=== PATIENT | female | born 1945 | race African-American/Black ===

== ENCOUNTER 2020-06-03 11:45 | Emergency (ER) | payer MEDICARE ==
[~2020-06-03] VITALS: Ht 165.1 cm; Wt 76.2 kg
[~2020-06-03 11:45] MED LIST: ASPI-889 PO; CEPH500C PO; FAMO-63 PO
--- NOTE | 2020-06-03 12:25 | EKG ---
[address] [address] Test Date: 2020-06-03 Test Time: 11:59:58 Pat Name: NAVARRO REYNOLDS Department: Room: Gender: F Host Hostess: ANTIONETTE : 1945 Requested By: ASHANTI BOYD Order Number: [id number] Reading MD: Measurements Intervals [place] Rate: 88 P: 46 [place]: 174 QRS: -2 QRSD: 134 T: 48 QT: 398 QTc: 485 Interpretive Statements SINUS RHYTHM LEFTWARD AXIS RIGHT BUNDLE BRANCH BLOCK ABNORMAL ECG RI6.02 No previous ECG available for comparison
[2020-06-03] MEDS ORDERED: IV NORMAL SALINE 1,000ML 1,000 ML IV ONE (12:30)
--- NOTE | 2020-06-03 12:35 | RAD ---
CHEST AP ONLY 06/03/2020 11:55 AM INDICATION: Right flank pain COMPARISON: 05/14/2016 TECHNIQUE: Portable frontal view of the chest is provided. FINDINGS: The cardiomediastinal silhouette is within normal limits. Left basilar subsegmental atelectasis versus scarring noted. There is chronic interstitial prominence biapical pleural-parenchymal scarring. Pulmonary emphysematous changes are suspected. There are no significant pleural effusions. There is no pulmonary vascular congestion. No pneumothorax. No suspicious osseous abnormality. IMPRESSION: COPD changes without acute cardiopulmonary process. Electronically signed by: Gina Nascimento MD (06/03/2020 12:33 PM) [facility]
[2020-06-03 13:00] LABS: BASO % 0 % (0-3); EOS % 0 % (0-3); HEMATOCRIT 29.1 % (36.0-47.0); HEMOGLOBIN 9.4 g/dL (12.0-15.5); LYMPH # 0.6 x10^3/uL (1.0-4.8); LYMPH % 9 % (24-48); MEAN CORPUSCULAR HEMOGLOBIN 30 pg (25-35); MEAN CORPUSCULAR HGB CONC 32 g/dL (31-37); MEAN CORPUSCULAR VOLUME 94 fL (79-100); MONO # 0.6 x10^3/uL (0.0-1.1); MONO % 9 % (0-9); NEUT # 5.7 x10^3uL (1.8-7.7); NEUT % 82 % (31-73); PLATELET COUNT 192 x10^3/uL (140-400); RED BLOOD COUNT 3.11 x10^6/uL (3.50-5.40); RED CELL DISTRIBUTION WIDTH 13.6 % (11.5-14.5)
--- NOTE | 2020-06-03 13:07 | PHYS DOC ---
Past History Past Medical History: Hypertension, Sciatica, Vascular Disease, Other Past Surgical History: No Surgical History Alcohol Use: None Drug Use: None General Adult EDM: Chief Complaint: GI PROBLEM HPI: HPI: History obtained from patient and daughter. Patient is a 75-year-old female with no reported medical history presents with chief complaint of abdominal pain with vomiting. Patient was seen at a primary care physician's office just prior to arrival noted to have a heart rate in the 40s and an SPO2 of 78%. Upon arrival patient has normal oxygenation on room air for rest. She states she has had multiple episodes of nonbloody nonbilious emesis over the past several days and is felt generally ill. Denies any fevers. Denies any previous abdominal surgical history. States she did have a bowel movement this morning. Reports passing flatus. Denies any chest pain or shortness of breath. Denies syncope. States she has not tried medication to help. Daughter does not report any additional concerning symptoms. Patient denies any urinary symptoms including dysuria or hematuria. She notes a decrease in urinary output. No other complaints. Review of Systems: Review of Systems: Constitutional: Denies fever or chills Eyes: Denies change in visual acuity HENT: Denies nasal congestion or sore throat Respiratory: Denies cough or shortness of breath Cardiovascular: Denies chest pain or edema GI: Positive for vomiting and abdominal pain : Denies dysuria Musculoskeletal: Denies back pain or joint pain Integument: Denies rash Neurologic: Denies headache, focal weakness or sensory changes Endocrine: Denies polyuria or polydipsia Lymphatic: Denies swollen glands Psychiatric: Denies depression or anxiety Heart Score: Risk Factors: Risk Factors: DM, Current or recent (<one month) smoker, HTN, HLP, family history of CAD, obesity. Risk Scores: Score 0 - 3: 2.5% MACE over next 6 weeks - Discharge Home Score 4 - 6: 20.3% MACE over next 6 weeks - Admit for Clinical Observation Score 7 - 10: 72.7% MACE over next 6 weeks - Early Invasive Strategies Current Medications: Current Meds: Current Medications Medications (Trade) Dose Ordered Sig/Jennifer Start Time Stop Time Status Last Admin Dose Admin Sodium Chloride 1,000 ml @ 1,000 mls/hr 1X ONCE 06/03/20 12:30 06/03/20 13:29 Allergies: Allergies: Allergies Coded Allergies Type Severity Reaction Last Updated Verified No Known Drug Allergies 12/23/15 No Physical Exam: PE: Constitutional: Well developed, well nourished, no acute distress, non-toxic appearance. [] HENT: Normocephalic, atraumatic, bilateral external ears normal, oropharynx moist, no oral exudates, nose normal. [] Eyes: PERRLA, EOMI, conjunctiva normal, no discharge. [] Neck: Normal range of motion, no tenderness, supple, no stridor. [] Cardiovascular:Heart rate regular rhythm, no murmur [] Lungs & Thorax: Bilateral breath sounds clear to auscultation [] Abdomen: Bowel sounds normal, soft, no tenderness, no masses, no pulsatile masses. [] Skin: Warm, dry, no erythema, no rash. [] Back: No tenderness, no CVA tenderness. [] Extremities: No tenderness, no cyanosis, no clubbing, ROM intact, no edema. [] Neurologic: Alert and oriented X 3, normal motor function, normal sensory function, no focal deficits noted. [] Psychologic: Affect normal, judgement normal, mood normal. [] Current Patient Data: Labs: Laboratory Tests Test 06/03/20 12:25 White Blood Count 7.0 x10^3/uL Red Blood Count 3.11 x10^6/uL Hemoglobin 9.4 g/dL Hematocrit 29.1 % Mean Corpuscular Volume 94 fL Mean Corpuscular Hemoglobin 30 pg Mean Corpuscular Hemoglobin Concent 32 g/dL Red Cell Distribution Width 13.6 % Platelet Count 192 x10^3/uL Neutrophils (%) (Auto) 82 % Lymphocytes (%) (Auto) 9 % Monocytes (%) (Auto) 9 % Eosinophils (%) (Auto) 0 % Basophils (%) (Auto) 0 % Neutrophils # (Auto) 5.7 x10^3uL Lymphocytes # (Auto) 0.6 x10^3/uL Monocytes # (Auto) 0.6 x10^3/uL Eosinophils # (Auto) 0.0 x10^3/uL Basophils # (Auto) 0.0 x10^3/uL Sodium Level 134 mmol/L Potassium Level 3.9 mmol/L Chloride Level 98 mmol/L Carbon Dioxide Level 14 mmol/L Anion Gap 22 Blood Urea Nitrogen 89 mg/dL Creatinine 13.6 mg/dL Estimated GFR (Cockcroft-Gault) 3.2 BUN/Creatinine Ratio 7 Glucose Level 89 mg/dL Calcium Level 10.8 mg/dL Magnesium Level 2.2 mg/dL Total Bilirubin 0.3 mg/dL Aspartate Amino Transf (AST/SGOT) 9 U/L Alanine Aminotransferase (ALT/SGPT) 17 U/L Alkaline Phosphatase 74 U/L Troponin I Quantitative < 0.017 ng/mL LY-Cfw-Y-Type Natriuretic Peptide 68640 pg/mL Total Protein 8.5 g/dL Albumin 3.7 g/dL Albumin/Globulin Ratio 0.8 Lipase 184 U/L Current Medications Medications (Trade) Dose Ordered Sig/Jennifer Route PRN Reason Start Time Stop Time Status Last Admin Dose Admin Sodium Chloride 1,000 ml @ 1,000 mls/hr 1X ONCE IV 06/03/20 12:30 06/03/20 13:29 DC 06/03/20 12:30 Vital Signs: Vital Signs Date Time Temp Pulse Resp B/P (MAP) Pulse Ox O2 Delivery O2 Flow Rate FiO2 06/03/20 14:25 98 172/100 (124) 92 EKG: EKG: [] EKG consistent with normal sinus rhythm. Ventricular rate of 88 bpm. Left axis noted. ST depression noted in the anterior lateral precordial leads. No acute ST segment elevation appreciated. Radiology/Procedures: Radiology/Procedures: [address] [address] IMAGING REPORT Signed PATIENT: NAVARRO REYNOLDS JACCOUNT: [id number] : 1945 LOCATION: ER AGE: 75 SEX: F EXAM STATUS: REG ER ORD. PHYSICIAN: ASHANTI BOYD DO REASON: abdominal pain with vomiting PROCEDURE: CT CHEST ABDOMEN PELVIS WO EXAM: CT Chest, Abdomen, and Pelvis without IV contrast INDICATION: Reason: abdominal pain with vomiting / Spl. Instructions: / History: TECHNIQUE: Multi-detector row CT images were acquired from the thoracic inlet through the ischial tuberosities without the use of IV contrast. Sagittal and coronal images were acquired from the transaxial data. All CT scans performed at this facility utilize dose optimization techniques as appropriate to the exam, including the following: Automated exposure control and adjustment of the mA and/or KV according to patient size (this includes techniques or standardized protocols for targeted exams where dose is indication/reason for exam). ORAL CONTRAST: Not administered COMPARISON: None FINDINGS: The absence of IV contrast limits evaluation of soft tissue pathology. CHEST: CARDIOVASCULAR: Normal caliber thoracic aorta without evidence of intramural hematoma. Normal caliber pulmonary arteries are normal size heart. Trace pericardial effusion. Coronary calcifications and aortic valvular calcifications are noted. MEDIASTINUM & CRISTINA: Extensive calcified mediastinal and bilateral hilar lymph nodes are present, largest measuring 2.2 cm in the right lower paratracheal anu station. Lungs only partially imaged but otherwise unremarkable. LUNGS: Bilateral subpleural cystic change primarily involving the lower lobes, lingula and right middle lobe. Lung apices show reticulonodular densities. PLEURAL SPACE: Small right pleural effusion. No pneumothorax. OSSEOUS & SOFT TISSUE: Unremarkable ABDOMEN/PELVIS: LIVER: Unremarkable BILIARY SYSTEM: Gallbladder is unremarkable. Bile ducts are not dilated. PANCREAS: There is pancreatic ductal dilation up to 6 mm in the pancreatic head without obvious obstructing stone. SPLEEN: Unremarkable ADRENALS: Unremarkable KIDNEYS & URETERS: Bilateral grade 3 hydronephrosis with marked perirenal soft tissue stranding on the right is noted. These are noted in the setting of bilateral nephrolithiasis, with a 5 mm wide, 7 mm tall stone in the mid right ureter, and a 1.4 x 1.0 cm stone present at the left UPJ. BLADDER: Incompletely distention with mild diffuse wall thickening that is nonspecific. REPRODUCTIVE ORGANS: Unremarkable GASTROINTESTINAL: The stomach, small bowel, and colon are unremarkable. The appendix is normal. MESENTERY/PERITONEUM/RETROPERITONEUM: Unremarkable VASCULAR: Unremarkable LYMPH NODES: No adenopathy OSSEOUS & SOFT TISSUES: Generalized osteopenia with mild loss of height at T4 and T6 and mild anterolisthesis of L4 on L5 of L5 on S1 with 5 lumbar type vertebrae noted. IMPRESSION: 1. Chest shows extensive calcified mediastinal and bilateral hilar lymph nodes, suggesting previous granulomatous disease, along with findings suggesting early changes of pulmonary fibrosis. Query sarcoidosis. There is a small right pleural effusion that may be reactive. 2. Abdomen and pelvis CT shows bilateral marked hydronephrosis related to bilateral ureteral stones but with exuberant right perirenal soft tissue stranding. Cannot exclude right pyelonephritis. Correlate clinically. Electronically signed by: Garrison Benítez MD (06/03/2020 2:07 PM) [id number] DICTATED AND SIGNED BY: GARRISON BENÍTEZ MD DATE: 06/03/20 1407 CC: PCP,LEONIE; ASHANTI BOYD DO ~ [place] [address] IMAGING REPORT Signed PATIENT: NAVARRO REYNOLDS JACCOUNT: [id number] : 1945 LOCATION: ER AGE: 75 SEX: F EXAM STATUS: REG ER ORD. PHYSICIAN: ASHANTI BOYD DO REASON: r flank pain PROCEDURE: CHEST AP ONLY CHEST AP ONLY 06/03/2020 11:55 AM INDICATION: Right flank pain COMPARISON: 05/14/2016 TECHNIQUE: Portable frontal view of the chest is provided. FINDINGS: The cardiomediastinal silhouette is within normal limits. Left basilar subsegmental atelectasis versus scarring noted. There is chronic interstitial prominence biapical pleural-parenchymal scarring. Pulmonary emphysematous changes are suspected. There are no significant pleural effusions. There is no pulmonary vascular congestion. No pneumothorax. No suspicious osseous abnormality. IMPRESSION: COPD changes without acute cardiopulmonary process. Electronically signed by: Rakel Jenkins MD (06/03/2020 12:33 PM) [facility] DICTATED AND SIGNED BY: RAKEL JENKINS MD DATE: 06/03/20 1233 CC: PCP,LEONIE; ASHANTI BOYD DO ~ [] Course & Med Decision Making: Course & Med Decision Making Pertinent Labs and Imaging studies reviewed. (See chart for details) [] Patient is a frail-appearing 75-year-old female who presents with chief complaint of vomiting and nonspecific abdominal discomfort. Initial vital signs grossly unremarkable. She was transferred from Dr. Guy's office for concern of bradycardia and hypoxia. Her vital signs are normal upon arrival to our facility. Physical exam grossly unremarkable. Chemistry panel was obtained and does show acute renal failure. This is a change from patient's baseline as patient and daughter both deny any medical problems. CT chest abdomen pelvis was also obtained and does show bilateral ureterolithiasis with moderate hydronephrosis. She may be experiencing obstructive renal failure. Given inflammatory changes noted on CAT scan imaging Rocephin will be administered. Blood cultures obtained and pending. Unfortunately we do not have urology coverage at our facility or at [facility]. Patient request transfer to [facility]. She has remained hemodynamically stable while in our emergency department. She has been accepted by Dr.Jean- Gore. Ginna Disclaimer: Ginna Disclaimer: This electronic medical record was generated, in whole or in part, using a voice recognition dictation system. Departure Departure: Impression: Primary Impression: Acute renal failure Qualified Codes: N17.9 - Acute kidney failure, unspecified Additional Impressions: Bilateral kidney stones Anemia Qualified Codes: D64.9 - Anemia, unspecified Pleural effusion Disposition: 02 DC/TRF OTHER SHORT TERM HOS Condition: STABLE Referrals: LEONIE SAAVEDRA (PCP) ASHANTI BOYD DO Jun 03, 2020 13:06
[2020-06-03 13:16] LABS: CALCIUM 10.8 mg/dL (8.5-10.1); CREATININE 13.6 mg/dL (0.6-1.0); GFR 3.2; POTASSIUM 3.9 mmol/L (3.5-5.1)
[2020-06-03 13:25] LABS: ALBUMIN 3.7 g/dL (3.4-5.0); ALBUMIN/GLOBULIN RATIO 0.8 (1.0-1.7); MAGNESIUM 2.2 mg/dL (1.8-2.4); TOTAL BILIRUBIN 0.3 mg/dL (0.2-1.0); TOTAL PROTEIN 8.5 g/dL (6.4-8.2)
--- NOTE | 2020-06-03 14:10 | RAD ---
EXAM: CT Chest, Abdomen, and Pelvis without IV contrast INDICATION: Reason: abdominal pain with vomiting / Spl. Instructions: / History: TECHNIQUE: Multi-detector row CT images were acquired from the thoracic inlet through the ischial tuberosities without the use of IV contrast. Sagittal and coronal images were acquired from the transaxial data. All CT scans performed at this facility utilize dose optimization techniques as appropriate to the exam, including the following: Automated exposure control and adjustment of the mA and/or KV according to patient size (this includes techniques or standardized protocols for targeted exams where dose is indication/reason for exam). ORAL CONTRAST: Not administered COMPARISON: None FINDINGS: The absence of IV contrast limits evaluation of soft tissue pathology. CHEST: CARDIOVASCULAR: Normal caliber thoracic aorta without evidence of intramural hematoma. Normal caliber pulmonary arteries are normal size heart. Trace pericardial effusion. Coronary calcifications and aortic valvular calcifications are noted. MEDIASTINUM & CRISTINA: Extensive calcified mediastinal and bilateral hilar lymph nodes are present, largest measuring 2.2 cm in the right lower paratracheal anu station. Lungs only partially imaged but otherwise unremarkable. LUNGS: Bilateral subpleural cystic change primarily involving the lower lobes, lingula and right middle lobe. Lung apices show reticulonodular densities. PLEURAL SPACE: Small right pleural effusion. No pneumothorax. OSSEOUS & SOFT TISSUE: Unremarkable ABDOMEN/PELVIS: LIVER: Unremarkable BILIARY SYSTEM: Gallbladder is unremarkable. Bile ducts are not dilated. PANCREAS: There is pancreatic ductal dilation up to 6 mm in the pancreatic head without obvious obstructing stone. SPLEEN: Unremarkable ADRENALS: Unremarkable KIDNEYS & URETERS: Bilateral grade 3 hydronephrosis with marked perirenal soft tissue stranding on the right is noted. These are noted in the setting of bilateral nephrolithiasis, with a 5 mm wide, 7 mm tall stone in the mid right ureter, and a 1.4 x 1.0 cm stone present at the left UPJ. BLADDER: Incompletely distention with mild diffuse wall thickening that is nonspecific. REPRODUCTIVE ORGANS: Unremarkable GASTROINTESTINAL: The stomach, small bowel, and colon are unremarkable. The appendix is normal. MESENTERY/PERITONEUM/RETROPERITONEUM: Unremarkable VASCULAR: Unremarkable LYMPH NODES: No adenopathy OSSEOUS & SOFT TISSUES: Generalized osteopenia with mild loss of height at T4 and T6 and mild anterolisthesis of L4 on L5 of L5 on S1 with 5 lumbar type vertebrae noted. IMPRESSION: 1. Chest shows extensive calcified mediastinal and bilateral hilar lymph nodes, suggesting previous granulomatous disease, along with findings suggesting early changes of pulmonary fibrosis. Query sarcoidosis. There is a small right pleural effusion that may be reactive. 2. Abdomen and pelvis CT shows bilateral marked hydronephrosis related to bilateral ureteral stones but with exuberant right perirenal soft tissue stranding. Cannot exclude right pyelonephritis. Correlate clinically. Electronically signed by: Milly Benítez MD (06/03/2020 2:07 PM) [id number]
[2020-06-03] MEDS ORDERED: IV NORMAL SALINE 50ML 50 ML ONE (14:56)
[2020-06-03] MEDS ORDERED: cefTRIAXone SODIUM 1 GM VIAL ONE (14:56)
[2020-06-03] MEDS ORDERED: MORPHINE SULFATE 4 MG/ML DISP.SYRIN. IV ONE (15:30)
[2020-06-03] MEDS ORDERED: ONDANSETRON PF 4 MG/2 ML VIAL. IVP ONE (15:30)
[2020-06-03 16:30] LABS: BILIRUBIN,URINE NEG (NEG); CLARITY,URINE HAZY; COLOR,URINE YELLOW; GLUCOSE,URINE 100 mg/dL (NEG); NITRITE,URINE NEG (NEG); UROBILINOGEN,URINE 0.2 mg/dL (0.2 mg/dL)
[2020-06-03 16:31] LABS: BACTERIA,URINE FEW /HPF (0-FEW); SQUAMOUS EPITHELIAL CELL,UR MANY /LPF
[2020-06-03 19:45] VITALS: BP 138/61
== END 2020-06-03 20:04 | disposition short-term general hospital (02) ==
LOC: ER 11:45
DX: N17.9 Acute kidney failure, unspecified (principal); N13.2 Hydronephrosis with renal and ureteral calculous obstruction; D64.9 Anemia, unspecified; J90 Pleural effusion, not elsewhere classified; I10 Essential (primary) hypertension
CPT/HCPCS: 36415; 71045; 71250; 74176; 80053; 81001; 83605; 83690; 83735; 83880; 84484; 85025; 87040; 87077; 87086; 87186; 93005; 96365; 96375; 99285; J0696; J2270; J2405; J7030

== ENCOUNTER → 2020-10-21 | Outpatient (CLI) | payer MEDICARE ==
[2020-10-21 13:18] LABS: ALBUMIN 3.8 g/dL (3.4-5.0); CREATININE 4.3 mg/dL (0.6-1.0); GFR 12.1; PHOSPHORUS 5.9 mg/dL (2.6-4.7); POTASSIUM 4.3 mmol/L (3.5-5.1)
[2020-10-21 13:46] LABS: CALCIUM 12.7 mg/dL (8.5-10.1)
== END ==
LOC: LAB 12:10
PROVIDERS: ATTEND Nurse Practitioner Family
DX: E83.52 Hypercalcemia (principal); E87.2 Acidosis; N18.4 Chronic kidney disease, stage 4 (severe)
CPT/HCPCS: 36415; 80069

== ENCOUNTER 2021-03-18 21:02 | Observation (INO) | payer MEDICARE ==
[~2021-03-18] VITALS: Ht 167.6 cm; Wt 62.4 kg
--- NOTE | 2021-03-18 21:31 | PHYS DOC ---
Past History Past Medical History: No Pertinent History (BRUNO GOULD APRN) Past Surgical History: No Surgical History (BRUNO GOULD APRN) Alcohol Use: None Drug Use: None (BRUNO GOULD APRN) General Adult EDM: Chief Complaint: DYSPNEA/RESPIRATOY DISTRESS HPI: HPI: Patient is a 76-year-old female who presents to the ER via EMS for generalized chest pain and shortness of breath. She reports that she was feeling short of breath prior to dialysis and it was worse after. Patient rates her pain 10 out of 10 and describes it as a heaviness. It is reproducible. Patient receives dialysis on Sunday, Sunday, Sunday. Attempted to ask patient how much fluid was removed but she was unable to answer the question and continues to mumble responses to any of my triage questions. Per EMS patient has a history of hypertension, renal failure, CHF, COPD but is noncompliant with her medications. Patient denies nausea, vomiting, fevers. (BRUNO GOULD APRN) Review of Systems: Review of Systems: 14 body systems of the review of systems have been reviewed. See HPI for pertinent positive and negative responses, otherwise all other systems are negative, nonpertinent or noncontributory (BRUNO GOULD APRN) Allergies: Allergies: Allergies Coded Allergies Type Severity Reaction Last Updated Verified No Known Drug Allergies 12/23/15 No (BRUNO GOULD APRN) Physical Exam: PE: Constitutional: Well developed, well nourished, no acute distress, non-toxic appearance. [] HENT: Normocephalic, atraumatic Eyes: PERRL, conjunctiva normal, no discharge. [] Neck: Normal range of motion, no stridor Cardiovascular:Heart rate regular rhythm, no murmur, pain with palpation of chest wall, dialysis port in right chest that is without signs of infection. [] Lungs & Thorax: Bilateral breath sounds clear to auscultation [] Abdomen: Bowel sounds normal, soft, no tenderness, no masses, no pulsatile masses. [] Skin: Warm, dry, no erythema, no rash. [] Back: Normal range of motion Extremities: No tenderness, no cyanosis, no clubbing, ROM intact, no edema. [] Neurologic: Alert and oriented X 3, normal motor function, normal sensory function, no focal deficits noted. [] Psychologic: Affect normal, judgement normal, mood normal. [] (BRUNO GOULD APRN) Current Patient Data: Labs: Laboratory Tests Test 03/18/21 21:25 White Blood Count 5.5 x10^3/uL Red Blood Count 2.35 x10^6/uL Hemoglobin 7.5 g/dL Hematocrit 23.3 % Mean Corpuscular Volume 99 fL Mean Corpuscular Hemoglobin 32 pg Mean Corpuscular Hemoglobin Concent 32 g/dL Red Cell Distribution Width 17.4 % Platelet Count 192 x10^3/uL Neutrophils (%) (Auto) 69 % Lymphocytes (%) (Auto) 18 % Monocytes (%) (Auto) 11 % Eosinophils (%) (Auto) 1 % Basophils (%) (Auto) 1 % Neutrophils # (Auto) 3.8 x10^3uL Lymphocytes # (Auto) 1.0 x10^3/uL Monocytes # (Auto) 0.6 x10^3/uL Eosinophils # (Auto) 0.1 x10^3/uL Basophils # (Auto) 0.0 x10^3/uL Sodium Level 139 mmol/L Potassium Level 3.6 mmol/L Chloride Level 99 mmol/L Carbon Dioxide Level 30 mmol/L Anion Gap 10 Blood Urea Nitrogen 5 mg/dL Creatinine 2.2 mg/dL Estimated GFR (Cockcroft-Gault) 26.2 BUN/Creatinine Ratio 2 Glucose Level 109 mg/dL Calcium Level 8.0 mg/dL Total Bilirubin 0.3 mg/dL Aspartate Amino Transf (AST/SGOT) 31 U/L Alanine Aminotransferase (ALT/SGPT) 19 U/L Alkaline Phosphatase 81 U/L Total Protein 7.8 g/dL Albumin 3.4 g/dL Albumin/Globulin Ratio 0.8 (BRUNO GOULD APRN) EKG: EKG: EKG performed by ER staff at 2128 shows sinus rhythm with bundle branch block, no STEMI as read by Dr. Piña. (BRUNO GOULD APRN) Radiology/Procedures: Radiology/Procedures: [] (BRUNO GOULD APRN) Heart Score: C/O Chest Pain: Yes HEART Score for Chest Pain: HEART Score for Chest Pain Response (Comments) Value History Moderately Suspicious 1 ECG Nonspecific Repolarizatio 1 Age > 65 2 Risk Factors 1 or 2 Risk Factors 1 Total 5 Risk Factors: Risk Factors: DM, Current or recent (<one month) smoker, HTN, HLP, family history of CAD, obesity. Risk Scores: Score 0 - 3: 2.5% MACE over next 6 weeks - Discharge Home Score 4 - 6: 20.3% MACE over next 6 weeks - Admit for Clinical Observation Score 7 - 10: 72.7% MACE over next 6 weeks - Early Invasive Strategies (BRUNO GOULD APRN) Course & Med Decision Making: Course & Med Decision Making Pertinent Labs and Imaging studies reviewed. (See chart for details) Patient is a 76-year-old female presents to the ER for generalized chest pain and shortness of breath. Shortness of breath was worsened after dialysis. Chest pain is reproducible. Work-up in the ER including blood work, EKG, chest x-ray. EKG shows sinus rhythm with bundle branch block. Blood work and chest x-ray pending at this time. Patient's case discussed with supervising physician. Care transferred to Dr. Piña at this time 2210 (BRUNO GOULD APRN) Course & Med Decision Making Patient care handed off to me at checkout pending labs and x-ray. X-ray notable for vascular congestion with no obvious effusions or confluent infiltrates but questionable on right side so patient was started on Rocephin. EKG and troponin not concerning. Laboratory analysis notable for normocytic anemia and elevated BUN and creatinine however BUN and creatinine is significantly improved over the last couple of months given temporary dialysis. Discussed all findings with family and recommended admission for continued evaluation, treatment of pulmonary vascular congestion/pulmonary edema and possible pneumonia. Family grateful, verbalized understanding and agreed with plan of admission. (RUFINO PIÑA MD) Dragon Disclaimer: Dragon Disclaimer: This electronic medical record was generated, in whole or in part, using a voice recognition dictation system. (BRUNO GOULD APRN) Departure Departure: Impression: Primary Impression: Pulmonary edema Additional Impressions: Elevated serum creatinine Anemia Shortness of breath Disposition: ADMITTED INPATIENT Admitting Physician: Josr Curran (RUFINO PIÑA MD) Condition: IMPROVED Referrals: MERCEDES SHORE MD (PCP) BRUNO GOULD APRN Mar 18, 2021 21:31 RUFINO PIÑA MD Mar 19, 2021 00:05
[2021-03-18 22:01] LABS: BASO % 1 % (0-3); CREATININE 2.2 mg/dL (0.6-1.0); EOS # 0.1 x10^3/uL (0.0-0.7); EOS % 1 % (0-3); GFR 26.2; HEMATOCRIT 23.3 % (36.0-47.0); HEMOGLOBIN 7.5 g/dL (12.0-15.5); LYMPH % 18 % (24-48); MEAN CORPUSCULAR HEMOGLOBIN 32 pg (25-35); MEAN CORPUSCULAR HGB CONC 32 g/dL (31-37); MEAN CORPUSCULAR VOLUME 99 fL (79-100); MONO # 0.6 x10^3/uL (0.0-1.1); MONO % 11 % (0-9); NEUT # 3.8 x10^3uL (1.8-7.7); NEUT % 69 % (31-73); PLATELET COUNT 192 x10^3/uL (140-400); POTASSIUM 3.6 mmol/L (3.5-5.1); RED BLOOD COUNT 2.35 x10^6/uL (3.50-5.40); RED CELL DISTRIBUTION WIDTH 17.4 % (11.5-14.5); WHITE BLOOD COUNT 5.5 x10^3/uL (4.0-11.0)
[2021-03-18 22:07] LABS: ALBUMIN 3.4 g/dL (3.4-5.0); ALBUMIN/GLOBULIN RATIO 0.8 (1.0-1.7); TOTAL BILIRUBIN 0.3 mg/dL (0.2-1.0); TOTAL PROTEIN 7.8 g/dL (6.4-8.2)
--- NOTE | 2021-03-18 22:33 | RAD ---
AP chest. HISTORY: Chest pain AP view was taken of the chest. There is a right dialysis catheter which extends to the right atrium. There is mild vascular congestion. Heart is upper normal in size. There is no definite effusion. The re are no confluent infiltrates. IMPRESSION: 1. Right dialysis catheter extends to the right atrium. 2. Mild vascular congestion. Electronically signed by: Marvin Boyd MD (03/18/2021 10:31 PM) [facility]
[2021-03-18] MEDS ORDERED: FUROSEMIDE 40 MG/4 ML VIAL IVP ONE (23:45)
[2021-03-19] MEDS ORDERED: IV NORMAL SALINE 50ML 50 ML ONE (00:21)
[2021-03-19] MEDS ORDERED: cefTRIAXone SODIUM 1 GM VIAL ONE (00:22)
--- NOTE | 2021-03-19 01:23 | NUR ---
The patient, NAVARRO REYNOLDS, 76 y/o, F admitted by YULI MANE MD, was given written information regarding hospital policies, unit procedures and contact persons. Valuables were checked and left with pt.
[2021-03-19 02:01] VITALS: BP 112/74
[2021-03-19 02:42] LABS: BILIRUBIN,URINE NEG (NEG); CLARITY,URINE HAZY; COLOR,URINE STRAW; GLUCOSE,URINE NEG (NEG)
[2021-03-19 02:43] LABS: BACTERIA,URINE FEW /HPF (0-FEW); NITRITE,URINE NEG (NEG); SQUAMOUS EPITHELIAL CELL,UR FEW /LPF; UROBILINOGEN,URINE 0.2 mg/dL (0.2 mg/dL)
--- NOTE | 2021-03-19 05:18 | NUR ---
Nursing note: Pt alert/oriented, sleepy but arousable to voice; able to walk SBA to BSC with no issues. Pt reported SOA when up, no visible retractions/pursed lip breathing. No c/o pain, no edema in LE, lungs CTA, room air throughout shift. I&O as reported, pt NPO per ED bridge orders. Pt stated she takes no home medications.
[2021-03-19 05:36] VITALS: BP 131/75
--- NOTE | 2021-03-19 10:53 | HP ---
ADMIT DATE: 03/19/2021 ATTENDING PHYSICIAN: Dr. Curran. CHIEF COMPLAINT: Shortness of breath. HISTORY OF PRESENT ILLNESS: The patient is a 76-year-old female who was admitted from the ED with increasing shortness of breath. She has end-stage renal failure. She is currently undergoing dialysis Sunday, Sunday and Sunday. She had her treatment Sunday. I do not know what her dry weight is. She was unable to answer much questions. There is some underlying confusion. By the time I saw her, the next morning, she was feeling better. Her chest x-ray showed mild blunting of costophrenic angle, some cephalization of vessels, no obvious fluid. She wanted to go home. She was admitted then with an exacerbation of volume overload and end-stage renal failure. PAST MEDICAL HISTORY: Significant for end-stage renal failure. She has a Vascath. She has been undergoing hemodialysis Sunday, Sunday, Sunday for the last month. She has chronic anemia, has a history of COPD and heart failure. Daughter is the primary general production worker. She lives at home. CURRENT MEDICATIONS: Reviewed. ALLERGIES: She has no known drug allergies. She was scheduled to take Lasix, but she had to stop since she was on dialysis. SOCIAL HISTORY: She is a nondrinker. She used to smoke in the past. In the ED, she was given some ceftriaxone and a dose of Lasix with some improvement. FAMILY HISTORY: Noncontributory. REVIEW OF SYSTEMS: Unobtainable. No recent fevers, chills, sweats or COVID exposure. All other systems reviewed and turned to be negative. PHYSICAL EXAMINATION: GENERAL: When I saw her, this is a pleasant elderly -Swazi female. INITIAL VITAL SIGNS: In the ED showed a blood pressure of 131/75, pulse is 80 and regular. She was afebrile, oxygen saturation 99% on room air. HEENT: Head is without trauma. Pupils are reactive. Sclerae nonicteric. Oropharynx clear. NECK: Venous pressure distended at 45 degrees. LUNGS: Good breath sounds. Minimal crackles at bases. CARDIOVASCULAR: Showed distant heart tones. No rubs or murmurs. Peripheral pulses are palpable and full. There is a Vascath in the right supraclavicular fossa. It is functioning. ABDOMEN: Soft. EXTREMITIES: Without edema. NEUROLOGIC: Focally intact. SKIN: Warm and dry. PERTINENT LABORATORY STUDIES: Hemoglobin 7.5 g/dL, white count 5500. Creatinine is 2.2 mg/dL. Her BUN is 5. Electrolytes: Sodium 139 mEq, potassium 3.6 mEq. Troponin was 0.03. Chest x-ray as noted. ASSESSMENT: 1. A 76-year-old female with symptomatic dyspnea due to some mild volume overload. 2. End-stage renal failure, on maintenance Sunday, Sunday, Sunday hemodialysis. 3. Chronic obstructive pulmonary disease. 4. Remote history of congestive heart failure. PLAN: 1. Admit to observation status. 2. Diuresis. 3. Supplemental oxygen. 4. We will try to contact her structural iron worker at discharge. ABDIRAHMAN DR: Marquis TID: [phone] CC: MERCEDES SHORE MD
--- NOTE | 2021-03-19 11:17 | NUR ---
DISCHARGE NOTE Pt discharged by Dr. Curran. Pt verbalized understanding of discharge paperwork and prescription. Discharge instructions also explained to pts daughter via telephone by Dr. Curran. All questions addressed. Pt GCS 15 and VSS upon DC. CC, RN
--- NOTE | 2021-03-19 17:15 | DS ---
DATE OF DISCHARGE: 03/19/2021 ATTENDING PHYSICIAN: Dr. Curran. FINAL DISCHARGE DIAGNOSES: 1. Volume overload, mild, resolved. 2. End-stage renal failure, on maintenance Sunday, Sunday, and Sunday hemodialysis. 3. Acute on chronic renal failure. 4. Asymptomatic anemia secondary to renal failure. HISTORY AND PHYSICAL: The patient, age 76, has been on maintenance hemodialysis for the last month. She became short of breath. She has some volume overload. Lasix orally had been discontinued since she started dialysis. She was admitted for further treatment and evaluation. PHYSICAL EXAMINATION: Please see my dictated note. PERTINENT LABORATORY AND X-RAY STUDIES: Admission hemoglobin 7.5 g/dL, white count 5500. Creatinine down to 2.2 mg percent. Cardiac enzymes are negative for coronary ischemia. Potassium 3.6 mEq per liter. Chest x-ray showed vascular congestion and blunting of the costophrenic angle. No effusions identified. COURSE IN THE HOSPITAL: The patient was admitted. She was given supplemental oxygen and dose of intravenous Lasix with marked improvement. By the second morning when I saw her, she was feeling better. Lungs were clear. Vital signs were stable. Her oxygen saturation was close to 100% on room air. She wanted to go home. I felt this is reasonable. I, therefore, wrote a script for Lasix 80 mg p.o. daily. She will continue her maintenance hemodialysis for now Sunday, Sunday, and Sunday. I explained to the daughter. No other home meds. Blood pressure is adequate. The patient was then discharged from our hospital in stable condition with explicit directions on followup care. LUIS F/DAYANNA/PRATIMA DR: Marquis TID: [id number] CC: MERCEDES SHORE MD
--- NOTE | 2021-03-21 13:19 | EKG ---
[address] [address] Test Date: 2021-03-18 Test Time: 21:28:01 Pat Name: NAVARRO REYNOLDS Department: Room: 109 A Gender: F Cube Cutter: MIKI : 1945 Requested By: BRUNO GOULD Order Number: [id number] Reading MD: Measurements Intervals [place] Rate: 105 P: -36 HI: 140 QRS: 16 QRSD: 126 T: 32 QT: 382 QTc: 509 Interpretive Statements SINUS TACHYCARDIA S1,S2,S3 PATTERN RIGHT BUNDLE BRANCH BLOCK ABNORMAL ECG RI6.02 No previous ECG available for comparison
== END 2021-03-19 11:15 | disposition home or self-care (01) ==
LOC: ER 21:02 → 1 SOUTH 03-19 00:04 → INTOOBSV 03-19 00:04
PROVIDERS: ADMIT Hospitalist; ATTEND Hospitalist
DX: E87.70 Fluid overload, unspecified (principal); I13.2 Hypertensive heart and chronic kidney disease with heart failure and with stage 5 chronic kidney disease, or end stage renal disease; N18.6 End stage renal disease; I50.9 Heart failure, unspecified; N17.9 Acute kidney failure, unspecified; D63.1 Anemia in chronic kidney disease; J44.9 Chronic obstructive pulmonary disease, unspecified; Z79.899 Other long term (current) drug therapy; Z87.891 Personal history of nicotine dependence; Z91.14 Patient's other noncompliance with medication regimen; Z99.2 Dependence on renal dialysis
CPT/HCPCS: 36415; 71045; 80053; 81001; 84484; 85025; 87086; 93005; 96365; 96375; 99285; G0378; J0696; J1940; 96374; G0379

== ENCOUNTER 2021-03-21 20:57 | Emergency (ER) | payer MEDICARE ==
[~2021-03-21] VITALS: Ht 167.6 cm; Wt 58.6 kg
[2021-03-21] MEDS ORDERED: LORazepam 1 MG TABLET PO ONE (21:15)
--- NOTE | 2021-03-21 21:18 | PHYS DOC ---
Past History Past Medical History: No Pertinent History Past Surgical History: Other Additional Past Surgical Histo: DAUGHTER REPORTS EMERGENT RIGHT JUGULAR LINE FOR DIALYSIS Alcohol Use: None Drug Use: None General Adult EDM: Chief Complaint: ANXIETY/PANIC ATTACK HPI: HPI: 76-year-old female presents via EMS with feeling of anxiety and elevated heart rate. The patient was at dialysis not long before she called EMS. When she got home, she felt like her heart rate was high and this made her very anxious. She states that she feels like it is slowed down now but she still has some anxiety. She denies chest pain or shortness of breath. She tells me that they did take off the "extra fluid because they did not take enough last time". Denies fever or chills. Review of Systems: Review of Systems: Constitutional: Denies fever or chills Eyes: Denies change in visual acuity HENT: Denies nasal congestion or sore throat Respiratory: Denies cough or shortness of breath Cardiovascular: Rapid heart rate. Denies chest pain or edema GI: Denies abdominal pain, nausea, vomiting, bloody stools or diarrhea : Denies dysuria Musculoskeletal: Denies back pain or joint pain Integument: Denies rash Neurologic: Denies headache, focal weakness or sensory changes Endocrine: Denies polyuria or polydipsia Lymphatic: Denies swollen glands Psychiatric: anxiety Current Medications: Current Meds: Current Medications Medications (Trade) Dose Ordered Sig/Jennifer Start Time Stop Time Status Last Admin Dose Admin Lorazepam (Ativan) 1 mg 1X ONCE 03/21/21 21:15 03/21/21 21:16 UNV Allergies: Allergies: Allergies Coded Allergies Type Severity Reaction Last Updated Verified No Known Drug Allergies 12/23/15 No Physical Exam: PE: Constitutional: Well developed, well nourished, no acute distress, non-toxic appearance. [] HENT: Normocephalic, atraumatic, bilateral external ears normal, oropharynx moist, no oral exudates, nose normal. [] Eyes: PERRLA, EOMI, conjunctiva normal, no discharge. [] Neck: Normal range of motion, no tenderness, supple, no stridor. [] Cardiovascular: Heart rate 94, regular rhythm, 3/6 systolic ejection murmur [] Lungs & Thorax: Bilateral breath sounds clear to auscultation [] Abdomen: Bowel sounds normal, soft, no tenderness, no masses, no pulsatile masses. [] Skin: Warm, dry, no erythema, no rash. [] Back: No tenderness, no CVA tenderness. [] Extremities: No tenderness, no cyanosis, no clubbing, ROM intact, no edema. [] Neurologic: Alert and oriented X 3, normal motor function, normal sensory function, no focal deficits noted. [] Psychologic: Affect normal, judgement normal, mood anxious. [] Current Patient Data: Vital Signs: Vital Signs Date Time Temp Pulse Resp B/P (MAP) Pulse Ox O2 Delivery O2 Flow Rate FiO2 03/21/21 21:01 98.7 97 16 139/81 99 Room Air EKG: EKG: Sinus rhythm, rate 86, normal axis, no ST elevation or depression, right bundle branch block. [] Radiology/Procedures: Radiology/Procedures: [] Heart Score: C/O Chest Pain: No Risk Factors: Risk Factors: DM, Current or recent (<one month) smoker, HTN, HLP, family history of CAD, obesity. Risk Scores: Score 0 - 3: 2.5% MACE over next 6 weeks - Discharge Home Score 4 - 6: 20.3% MACE over next 6 weeks - Admit for Clinical Observation Score 7 - 10: 72.7% MACE over next 6 weeks - Early Invasive Strategies Course & Med Decision Making: Course & Med Decision Making Pertinent Labs and Imaging studies reviewed. (See chart for details) The patient is initially refused labs. She tells me she really thinks this is her anxiety and would like to try treating the anxiety. I negotiated with her for an EKG and to try Ativan. I told her that if she still does not feel well, labs would be necessary and she is in agreement. The patient feels a lot better after the Ativan. She is requesting to go home. Her family has arrived and they are in agreement with this plan. She is stable for discharge at this time. [] [place] Disclaimer: Ginna Disclaimer: This electronic medical record was generated, in whole or in part, using a voice recognition dictation system. Departure Departure: Impression: Primary Impression: Anxiety Disposition: HOME / SELF CARE / HOMELESS Condition: IMPROVED Referrals: MERCEDES SHORE MD (PCP) Patient Instructions: Anxiety and Panic Attacks, Fkgi-vw-Bton Scripts No Active Prescriptions or Reported Meds BARRON,DEANNA DO Mar 21, 2021 21:18
--- NOTE | 2021-03-21 21:45 | RAD ---
Exam: Chest one view INDICATION: Chest pain TECHNIQUE: Frontal view of the chest Comparisons: None FINDINGS: There is a double-lumen catheter with tip at the right atrium. Heart is mildly enlarged. Pulmonary vessels are within normal limits. The lung and pleural spaces are clear. IMPRESSION: No acute cardiopulmonary process. Electronically signed by: Jyotsna Thompson MD (03/21/2021 9:43 PM) TONIE
[2021-03-21 22:30] VITALS: BP 147/83
--- NOTE | 2021-03-21 23:21 | EKG ---
[address] [address] Test Date: 2021-03-21 Test Time: 21:22:57 Pat Name: NAVARRO REYNOLDS Department: Room: Gender: F Php Architect: : 1945 Requested By: DEANNA BARRON Order Number: [id number] Reading MD: Measurements Intervals [place] Rate: 86 P: 39 CT: 156 QRS: 29 QRSD: 132 T: 39 QT: 430 QTc: 518 Interpretive Statements SINUS RHYTHM RIGHT BUNDLE BRANCH BLOCK ABNORMAL ECG RI6.02 No previous ECG available for comparison
== END 2021-03-21 22:32 | disposition home or self-care (01) ==
LOC: ER 22:04
DX: F41.9 Anxiety disorder, unspecified (principal)
CPT/HCPCS: 71045; 93005; 99283; 99284

== ENCOUNTER → 2021-05-30 | Outpatient (CLI) | payer MEDICARE ==
--- NOTE | 2021-05-31 08:49 | RAD ---
EXAM: Left knee, 2 views. HISTORY: Pain. COMPARISON: None. FINDINGS: 2 views of the left knee are obtained. There is mild medial compartment joint space narrowi ng. There is lateral compartment chondrocalcinosis. There is a moderate knee effusion. There is bone demineralization. There are growth arrest lines within the distal femur and proximal tibia. There is a suspected bone island within the proximal tibia. IMPRESSION: 1. Mild medial compartment predominant osteoarthritis of the left knee and left knee chondrocalcinosi s. 2. Moderate left knee effusion. 3. Bone demineralization. Electronically signed by: Abena Ayala MD (05/31/2021 8:47 AM) [id number]
== END ==
LOC: RAD 16:42
PROVIDERS: ATTEND Family Medicine
DX: M17.12 Unilateral primary osteoarthritis, left knee (principal); M11.262 Other chondrocalcinosis, left knee; M25.462 Effusion, left knee
CPT/HCPCS: 73560

== ENCOUNTER 2021-07-17 23:00 | Emergency (ER) | payer MEDICARE ==
[~2021-07-17] VITALS: Ht 167.6 cm; Wt 60.5 kg
--- NOTE | 2021-07-17 23:03 | PHYS DOC ---
Past History Past Medical History: No Pertinent History, Renal Disease, Renal Failure Past Surgical History: Other Additional Past Surgical Histo: DAUGHTER REPORTS EMERGENT RIGHT JUGULAR LINE FOR DIALYSIS Alcohol Use: None Drug Use: None General Adult HPI: HPI: Patient is a 76 year old female who presents with above hx and complaints of left flank back pain. Patient localizes pain in the left flank. No history of trauma. Patient has somewhat complicated medical history with end-stage renal failure, with hemodialysis on Wednesdays and Sunday. She has chronic anemia, COPD, heart failure, pulmonary edema and episodes of hyperkalemia. Patient normally follows with dialysis here in [place]. Here academic hospitalist is Dr. Ferguson. No recent travel. No specific ill contacts. Recently underwent placement of a peritoneal dialysis drain at [facility]. Patient is also followed at in the past. Patient has past medical history of end- stage renal disease, multiple Vas-Cath, chronic anemia, COPD, heart failure, arthritis and deconditioning. Her daughter is her primary community recreation coordinator. Normally follows with Dr. Pardo for her care who is her primary academic hospitalist. Patient has not gotten Covid vaccination and has not gotten flu vaccination. Review of Systems: Review of Systems: Constitutional: Denies fever or chills Eyes: Denies change in visual acuity HENT: Denies nasal congestion or sore throat Respiratory: Denies cough or shortness of breath Cardiovascular: Denies chest pain or edema GI: Complains of left flank abdominal pain,. Patient complains of some nausea,. Patient denies vomiting, bloody stools or diarrhea : Denies dysuria Musculoskeletal: Complains of left flank back pain Integument: Denies rash Neurologic: Denies headache, focal weakness or sensory changes Endocrine: Denies polyuria or polydipsia Lymphatic: Denies swollen glands Psychiatric: Denies depression or anxiety Family History: Family History: Noncontributory to presentation Current Medications: Current Meds: See nursing for home meds Allergies: Allergies: Allergies Coded Allergies Type Severity Reaction Last Updated Verified No Known Drug Allergies 12/23/15 No Physical Exam: PE: Constitutional:no acute distress, non-toxic appearance. [] HENT: Normocephalic, atraumatic, bilateral external ears normal, oropharynx moist, no oral exudates, nose normal. [] Eyes: PERRLA, EOMI, conjunctiva normal, no discharge. [] Neck: Normal range of motion, no tenderness, supple, no stridor. [] JVD Cardiovascular:Heart rate regular rhythm, no murmur [] BMI to the left Lungs & Thorax: Bilateral breath sounds equal apex with scattered crackles throughout on auscultation [] Cordis on right Abdomen: Bowel sounds normal, soft, no tenderness, no masses, no pulsatile masses. Surgery scars. Recent laparoscopy scars are healing well no obvious drainage or erythema Skin: Warm, dry, no erythema, no rash. [] Back: No tenderness, no CVA tenderness. [] Extremities: No tenderness, no cyanosis, no clubbing, ROM intact, no edema. Arthritic changes. No cording. Old scars on upper extremities Neurologic: Alert and oriented X 3, normal motor function, normal sensory function, no focal deficits noted. [] Psychologic: Affect anxious, judgement normal, mood normal. [] EKG: EKG: My interpretation of EKG shows a sinus rhythm at 69 bpm. Does have a rhythm which appears to be sinus related. Does have a bundle P waves. Has had some findings of right bundle branch block. Time of this EKG is 2341 hrs. [] Radiology/Procedures: Radiology/Procedures: [][place] [address] IMAGING REPORT Signed PATIENT: NAVARRO REYNODLS JACCOUNT: [id number] : 1945 LOCATION: ER AGE: 76 SEX: F EXAM STATUS: REG ER ORD. PHYSICIAN: BERNA QUINTANA MD REASON: Lt. chest wall pain after abd. surgery PROCEDURE: CT CHEST ABDOMEN PELVIS WO CT CHEST_ABDOMEN_ AND PELVIS WITHOUT CONTRAST History: Left chest wall pain after abdominal surgery. Comparison: CT chest, abdomen and pelvis 06/03/2020 Technique: CT of the chest, abdomen and pelvis without contrast. Findings: Chest: Devices: Right IJ approach dual-lumen dialysis catheter tip terminates in the right atrium. Pulmonary arteries: Unremarkable noncontrast appearance. Aorta and great vessels: No aneurysm of the aortic arch or thoracic aorta is seen. No significant atherosclerotic calcification. Heart: The heart is normal in size. There is no pericardial effusion. Mild to moderate coronary artery calcification. Thyroid: No significant abnormalities. Mediastinum and patel: Redemonstrated bulky calcified mediastinal lymph nodes. Esophagus: The visualized esophagus is normal. Airways, Lungs, Pleura: Airways are patent. Redemonstrated upper lobe reticular nodular opacities similar to comparison. Scattered bibasilar micronodules also not significantly changed. Small subpleural cystic change at the bases. No pleural effusion or pneumothorax. Soft tissue and osseous: Decreased osseous mineralization with redemonstrated T6 compression fracture. No acute osseous abnormalities. Abdomen/Pelvis: Devices: Left anterior approach peritoneal dialysis catheter coils in the anterior right pelvis. General abdomen: No ascites. No free air. Liver : Normal in size and attenuation. No masses seen. Gallbladder/Biliary Tree: Normal gallbladder. No intrahepatic or extrahepatic biliary ductal dilatation. Pancreas: Normal. Spleen: Normal in size and attenuation. Adrenal glands: Normal. Kidneys: No hydronephrosis or hydroureter. Bilateral atrophy with numerous bilateral nephroliths. There is a 3 mm left ureterovesicular junction stone. Gastrointestinal: Well-distended stomach without focal abnormality. The small bowel is unremarkable. Normal appendix. Mild colonic stool burden. No pericolonic inflammatory changes. Lymph nodes: No lymphadenopathy. Vessels: Aorta iliac calcification without aneurysm. Pelvic Organs: Atrophic uterus calcifications. No pelvic masses. The bladder is unremarkable. Soft tissues: Soft tissue swelling anterior abdominal wall adjacent to the umbilicus. Bones: Decreased osseous mineralization. Anterolisthesis of L4 on L5 redemonstrated. Multilevel lumbar disc and facet disease. Impression: 1. Left ureterovesicular junction 3 mm stone without hydronephrosis. 2. Bilateral extensive nephrolithiasis. 3. Left anterior peritoneal dialysis catheter in appropriate position. 4. Mild soft tissue stranding in the anterior abdominal wall adjacent to the umbilicus may be related to surgical change. Correlate for cellulitis. 5. Redemonstrated chronic reticular nodular opacities in the lungs similar to comparison. Extensive calcified mediastinal and hilar granulomatous disease. ------ Exposure: One or more of the following individualized dose reduction techniques were utilized for this examination: 1. Automated exposure control 2. Adjustment of the mA and/or kV according to patient size 3. Use of iterative reconstruction technique. Electronically signed by: Artem Arambula MD (07/18/2021 1:19 AM) [id number] DICTATED AND SIGNED BY: ARTEM ARAMBULA MD DATE: 07/18/21 0109 CC: BERNA QUINTANA MD; PCP,NO ~MTH0 0 Heart Score: C/O Chest Pain: N/A HEART Score for Chest Pain: HEART Score for Chest Pain Response (Comments) Value History Moderately Suspicious 1 ECG Nonspecific Repolarizatio 1 Age > 65 2 Risk Factors 1 or 2 Risk Factors 1 Troponin < Normal Limit 0 Total 5 Risk Factors: Risk Factors: DM, Current or recent (<one month) smoker, HTN, HLP, family history of CAD, obesity. Risk Scores: Score 0 - 3: 2.5% MACE over next 6 weeks - Discharge Home Score 4 - 6: 20.3% MACE over next 6 weeks - Admit for Clinical Observation Score 7 - 10: 72.7% MACE over next 6 weeks - Early Invasive Strategies Course & Med Decision Making: Course & Med Decision Making Pertinent Labs and Imaging studies reviewed. (See chart for details) Patient use lidocaine over area of left flank tenderness. Take Tylenol for pain. Take pain meds previously prescribed as directed. Must get her renal dialysis this morning. Follow-up with Dr. Pardo. Follow-up with her surgeon as scheduled. Return if any concerns. Follow-up with urologist. In the event that the small stone does not pass. If she does not have a urologist consider calling Dr.Bradley Mclaughlin [phone]. Impression: 1. Lt. Flank Pain - 4 2. ESRDz. - HD Sun. Sun. and Sunday 3. 3 mm Stone UVJ. 4. Anemia of Chronic Dz. Hgb=9.4 5. Pulmonary Edema 6. Accelerated Hypertension [] Dragon Disclaimer: Dragon Disclaimer: This electronic medical record was generated, in whole or in part, using a voice recognition dictation system. Departure Departure: Referrals: PCP,NO (PCP) Scripts Lidocaine/Menthol (LIDOPATCH) 1 Each Adh..patch 1 JARON TP BID for chest wall pain for 30 Days, #30 EACH 0 Refills Prov: BERNA QUINTANA MD 07/18/21 Ondansetron Hcl (ZOFRAN) 4 Mg Tablet 8 MG PO QIDPRN PRN for nv, #30 TAB Prov: BERNA QUINTANA MD 07/18/21 Oxycodone HCl/Acetaminophen (Percocet 5-325 mg Tablet) 1 Each Tablet 1 TAB PO PRN QID PRN for kidney stone MDD 4 Tablet(s) for 30 Days, #30 TAB 0 Refills Prov: BERNA QUINTANA MD 07/18/21 Ginna Disclaimer This chart was dictated in whole or in part using Voice Recognition software in a busy, high-work load, and often noisy Emergency Department environment. It may contain unintended and wholly unrecognized errors or omissions. BERNA QUINTANA MD Jul 17, 2021 23:03
--- NOTE | 2021-07-18 00:10 | EKG ---
[address] [address] Test Date: 2021-07-17 Test Time: 23:41:30 Pat Name: NAVARRO REYNOLDS Department: Room: Gender: F Administrative Coordinator: : 1945 Requested By: BERNA QUINTANA Order Number: [id number] Reading MD: Measurements Intervals [place] Rate: 69 P: MD: QRS: 4 QRSD: 128 T: 27 QT: 382 QTc: 411 Interpretive Statements IRREGULAR RHYTHM, NO P-WAVE FOUND S1,S2,S3 PATTERN RIGHT BUNDLE BRANCH BLOCK ABNORMAL ECG RI6.02 No previous ECG available for comparison
--- NOTE | 2021-07-18 01:21 | RAD ---
CT CHEST_ABDOMEN_ AND PELVIS WITHOUT CONTRAST History: Left chest wall pain after abdominal surgery. Comparison: CT chest, abdomen and pelvis 06/03/2020 Technique: CT of the chest, abdomen and pelvis without contrast. Findings: Chest: Devices: Right IJ approach dual-lumen dialysis catheter tip terminates in the right atrium. Pulmonary arteries: Unremarkable noncontrast appearance. Aorta and great vessels: No aneurysm of the aortic arch or thoracic aorta is seen. No significant ath erosclerotic calcification. Heart: The heart is normal in size. There is no pericardial effusion. Mild to moderate coronary arter y calcification. Thyroid: No significant abnormalities. Mediastinum and patel: Redemonstrated bulky calcified mediastinal lymph nodes. Esophagus: The visualized esophagus is normal. Airways, Lungs, Pleura: Airways are patent. Redemonstrated upper lobe reticular nodular opacities sim ilar to comparison. Scattered bibasilar micronodules also not significantly changed. Small subpleural cystic change at the bases. No pleural effusion or pneumothorax. Soft tissue and osseous: Decreased osseous mineralization with redemonstrated T6 compression fracture . No acute osseous abnormalities. Abdomen/Pelvis: Devices: Left anterior approach peritoneal dialysis catheter coils in the anterior right pelvis. General abdomen: No ascites. No free air. Liver : Normal in size and attenuation. No masses seen. Gallbladder/Biliary Tree: Normal gallbladder. No intrahepatic or extrahepatic biliary ductal dilatati on. Pancreas: Normal. Spleen: Normal in size and attenuation. Adrenal glands: Normal. Kidneys: No hydronephrosis or hydroureter. Bilateral atrophy with numerous bilateral nephroliths. The re is a 3 mm left ureterovesicular junction stone. Gastrointestinal: Well-distended stomach without focal abnormality. The small bowel is unremarkable. Normal appendix. Mild colonic stool burden. No pericolonic inflammatory changes. Lymph nodes: No lymphadenopathy. Vessels: Aorta iliac calcification without aneurysm. Pelvic Organs: Atrophic uterus calcifications. No pelvic masses. The bladder is unremarkable. Soft tissues: Soft tissue swelling anterior abdominal wall adjacent to the umbilicus. Bones: Decreased osseous mineralization. Anterolisthesis of L4 on L5 redemonstrated. Multilevel lumba r disc and facet disease. Impression: 1. Left ureterovesicular junction 3 mm stone without hydronephrosis. 2. Bilateral extensive nephrolithiasis. 3. Left anterior peritoneal dialysis catheter in appropriate position. 4. Mild soft tissue stranding in the anterior abdominal wall adjacent to the umbilicus may be relate d to surgical change. Correlate for cellulitis. 5. Redemonstrated chronic reticular nodular opacities in the lungs similar to comparison. Extensive calcified mediastinal and hilar granulomatous disease. ------ Exposure: One or more of the following individualized dose reduction techniques were utilized for thi s examination: 1. Automated exposure control 2. Adjustment of the mA and/or kV according to patient size 3. Use of iterative reconstruction technique. Electronically signed by: Artem Easton MD (07/18/2021 1:19 AM) [id number]
[2021-07-18 01:30] LABS: BASO % 1 % (0-3); EOS # 0.1 x10^3/uL (0.0-0.7); EOS % 2 % (0-3); HEMATOCRIT 28.9 % (36.0-47.0); HEMOGLOBIN 9.4 g/dL (12.0-15.5); LYMPH # 0.8 x10^3/uL (1.0-4.8); LYMPH % 19 % (24-48); MEAN CORPUSCULAR HEMOGLOBIN 32 pg (25-35); MEAN CORPUSCULAR HGB CONC 33 g/dL (31-37); MEAN CORPUSCULAR VOLUME 97 fL (79-100); MONO # 0.4 x10^3/uL (0.0-1.1); MONO % 9 % (0-9); NEUT # 3.1 x10^3uL (1.8-7.7); NEUT % 70 % (31-73); PLATELET COUNT 185 x10^3/uL (140-400); RED BLOOD COUNT 2.98 x10^6/uL (3.50-5.40); RED CELL DISTRIBUTION WIDTH 17.3 % (11.5-14.5); WHITE BLOOD COUNT 4.4 x10^3/uL (4.0-11.0)
[2021-07-18 01:31] LABS: CALCIUM 10.5 mg/dL (8.5-10.1); CREATININE 7.2 mg/dL (0.6-1.0); GFR 6.7; POTASSIUM 4.2 mmol/L (3.5-5.1)
[2021-07-18 01:44] LABS: ALBUMIN 3.2 g/dL (3.4-5.0); DIRECT BILIRUBIN 0.1 mg/dL (0.0-0.2); MAGNESIUM 2.3 mg/dL (1.8-2.4); TOTAL BILIRUBIN 0.4 mg/dL (0.2-1.0)
[2021-07-18 01:55] LABS: BACTERIA,URINE FEW /HPF (0-FEW); BILIRUBIN,URINE NEG (NEG); CLARITY,URINE CLEAR; COLOR,URINE YELLOW; GLUCOSE,URINE NEG (NEG); NITRITE,URINE NEG (NEG); SQUAMOUS EPITHELIAL CELL,UR FEW /LPF; UROBILINOGEN,URINE 0.2 mg/dL (0.2 mg/dL)
[2021-07-18] MEDS ORDERED: OXYC-325 PO (02:08)
[2021-07-18] MEDS ORDERED: ONDA4TAB7 PO (02:08)
[2021-07-18 02:14] VITALS: BP 177/103
[2021-07-18] MEDS: MORPHINE SULFATE 4 MG/ML DISP.SYRIN. SQ ONE (02:28)
[2021-07-18] MEDS ORDERED: MORPHINE SULFATE 10 MG/ML SYRINGE. SQ ONE (02:30)
[2021-07-18] MEDS ORDERED: LIDO1ADH TP (02:45)
[2021-07-18] MEDS: LIDOCAINE (700MG/PATCH) PATCH. TD SCH (02:49)
--- NOTE | 2021-07-18 04:15 | RAD ---
XR ABDOMEN COMP ACUTE History: Peritoneal dialysis catheter placement. Comparison: CT chest, abdomen and pelvis 07/18/2021 Technique: Portable AP chest radiograph. FINDINGS/ IMPRESSION: Tubes and lines: Right IJ approach tunneled dialysis catheter with tip at the right atrium. Lungs and pleura: Chronic heterogeneous upper lobe predominant reticular opacities. No pleural effusi on or pneumothorax. Cardiac silhouette and pulmonary vasculature: Unremarkable Osseous structures and other: No subdiaphragmatic free air. No acute osseous abnormality. Electronically signed by: Artem Easton MD (07/18/2021 4:12 AM) [id number]
[2021-07-18] MEDS ORDERED: PATCH REMOVAL. MC SCH (21:00)
== END 2021-07-18 03:18 | disposition home or self-care (01) ==
LOC: ER 23:00
DX: N20.1 Calculus of ureter (principal); I13.2 Hypertensive heart and chronic kidney disease with heart failure and with stage 5 chronic kidney disease, or end stage renal disease; N18.6 End stage renal disease; I50.1 Left ventricular failure, unspecified; D63.1 Anemia in chronic kidney disease; J44.9 Chronic obstructive pulmonary disease, unspecified; Z99.2 Dependence on renal dialysis; Z86.2 Personal history of diseases of the blood and blood-forming organs and certain disorders involving the immune mechanism
CPT/HCPCS: 71250; 74022; 74176; 80048; 80076; 81001; 82550; 83735; 83880; 84484; 85025; 85610; 85730; 87086; 93005; 96372; 99285; J2270

== ENCOUNTER → 2021-11-18 | Outpatient (CLI) | payer MEDICARE ==
[~2021-11-18] MED LIST changes: +LIDO1ADH TP; +ONDA4TAB7 PO; +OXYC-325 PO
[2021-11-18 10:11] LABS: BASO % 1 % (0-3); EOS # 0.1 x10^3/uL (0.0-0.7); EOS % 2 % (0-3); HEMATOCRIT 36.5 % (36.0-47.0); HEMOGLOBIN 11.7 g/dL (12.0-15.5); LYMPH # 1.1 x10^3/uL (1.0-4.8); LYMPH % 30 % (24-48); MEAN CORPUSCULAR HEMOGLOBIN 30 pg (25-35); MEAN CORPUSCULAR HGB CONC 32 g/dL (31-37); MEAN CORPUSCULAR VOLUME 94 fL (79-100); MONO # 0.4 x10^3/uL (0.0-1.1); MONO % 11 % (0-9); NEUT # 2.1 x10^3uL (1.8-7.7); NEUT % 57 % (31-73); PLATELET COUNT 242 x10^3/uL (140-400); RED BLOOD COUNT 3.88 x10^6/uL (3.50-5.40); RED CELL DISTRIBUTION WIDTH 16.5 % (11.5-14.5); WHITE BLOOD COUNT 3.8 x10^3/uL (4.0-11.0)
[2021-11-18 10:37] LABS: ALBUMIN 3.4 g/dL (3.4-5.0); ALBUMIN/GLOBULIN RATIO 0.9 (1.0-1.7); CALCIUM 11.8 mg/dL (8.5-10.1); CREATININE 11.5 mg/dL (0.6-1.0); GFR 3.9; POTASSIUM 5.9 mmol/L (3.5-5.1); TOTAL BILIRUBIN 0.4 mg/dL (0.2-1.0); TOTAL PROTEIN 7.3 g/dL (6.4-8.2)
[2021-11-18 20:56] LABS: CHOLESTEROL/HDL RATIO 2.7; THYROID STIM HORMONE (TSH) 1.796 uIU/mL (0.358-3.740)
== END ==
LOC: LAB 09:11
PROVIDERS: ATTEND Nurse Practitioner Family
DX: I12.9 Hypertensive chronic kidney disease with stage 1 through stage 4 chronic kidney disease, or unspecified chronic kidney disease (principal); N18.9 Chronic kidney disease, unspecified
CPT/HCPCS: 36415; 80053; 80061; 84443; 85025

== ENCOUNTER → 2021-12-15 | Outpatient (CLI) | payer MEDICARE ==
--- NOTE | 2021-12-15 16:54 | RAD ---
EXAM: ULTRASOUND SOFT TISSUE NECK CLINICAL HISTORY: Reason: palpable neck mass / Spl. Instructions: / History: COMPARISON: None available. TECHNIQUE: Ultrasound examination of the right neck was performed in the area of concern FINDINGS: In the area of concern in the right neck, there is a partially calcified structure measuring 1.5 x 1. 4 x 1.0 cm with posterior acoustic shadowing. No internal blood flow. This is immediately adjacent to the right common carotid artery. IMPRESSION: 1.5 cm calcified structure in the right neck in the area of concern. This could be a heavily calcifie d artery, calcified lymph node, or a soft tissue mass. Consider correlation with CT of the neck with contrast or CT angiogram of the neck. Electronically signed by: Raya Brown MD (12/15/2021 4:52 PM) [id number]
== END ==
LOC: US 12:08
PROVIDERS: ATTEND Nurse Practitioner Family
DX: R22.1 Localized swelling, mass and lump, neck (principal)
CPT/HCPCS: 76536